=== PATIENT | male | born 1960 | race Caucasian/White ===

== ENCOUNTER 2017-06-01 11:44 | Emergency (ER) | payer OTHER ==
[2017-06-01 11:47] VITALS: BP 173/100; PULSE 89; RESP 16; TEMP 98.4; O2SAT 98
[2017-06-01] MEDS ORDERED: PRED20 PO (13:25)
--- NOTE | 2017-06-01 13:30 | PD ---
HPI Chief Complaint: Skin Problem Time Seen by Provider: 13:25 Travel History International Travel<30 days: No Contact w/Intl Traveler<30days: No Traveled to known affect area: No History of Present Illness HPI 56-year-old male presents for evaluation of a rash. Symptoms started 3-4 days ago. The rash is pruritic, primarily localized to the back and chest. He does report that he lifts weights, typically he wears tight shirts when he lifts weights, tends to sweat quite a bit in the shirts. He denies any new medications, creams, lotions, detergents. Denies any swelling of the tongue or the throat. No sick contacts. No recent travel. No other complaints. [facility] Social History Alcohol Use: No Tobacco Use: No Allergies-Medications (Allergen,Severity, Reaction): Coded Allergies: No Known Allergies (Unverified , 06/01/17) Reported Meds & Prescriptions Reported Meds & Active Scripts Active Prednisone 20 Mg Tab 20 Mg PO BID 5 Days Review of Systems Except as stated in HPI: all other systems reviewed are Neg Physical Exam Narrative GENERAL: Well-developed well-nourished male in no acute distress SKIN: Warm and dry. Maculopapular rash noted primarily on the torso and proximal extremities. No annular lesions, no petechiae, no purpura, no hives HEAD: Atraumatic. Normocephalic. EYES: Pupils equal and round. No scleral icterus. No injection or drainage. ENT: No nasal bleeding or discharge. Mucous membranes pink and moist. NECK: Trachea midline. No JVD. CARDIOVASCULAR: Regular rate and rhythm. No murmur appreciated. RESPIRATORY: No accessory muscle use. Clear to auscultation. Breath sounds equal bilaterally. MUSCULOSKELETAL: No obvious deformities. No clubbing. No cyanosis. No edema. Data Data Last Documented VS Vital Signs Date Time Temp Pulse Resp B/P (MAP) Pulse Ox O2 Delivery O2 Flow Rate FiO2 06/01/17 11:47 98.4 89 16 173/100 (124) 98 MDM Medical Decision Making Medical Screen Exam Complete: Yes Emergency Medical Condition: Yes Medical Record Reviewed: Yes Differential Diagnosis Irritant contact dermatitis, folliculitis, viral exanthem, pityriasis rosea Narrative Course 56-year-old male here with a papular pruritic rash in the torso for the past few days. The plan is to treat him with oral steroids and antihistamines and have him follow-up as an outpatient with primary care if symptoms persist. Diagnosis Primary Impression: Pruritic rash Additional Instructions: Medication as prescribed. Use [id number] Benadryl every 6 hours for itching. Do not drive or drink alcohol when taking this medication as an May cause sedation. Follow up with primary care, return for any emergent medical conditions. Med/Other Pt SpecificInfo: Prescription(s) given Scripts Prednisone (Prednisone) 20 Mg Tab 20 MG PO BID for 5 Days, #10 TAB 0 Refills Prov: Ivy Plasencia MD 06/01/17 Disposition: 01 DISCHARGE HOME Condition: Stable Titi Alonzo Jun 01, 2017 13:30
== END 2017-06-01 13:56 | disposition home or self-care (01) ==
LOC: NEPK 11:44
DX: R21 Rash and other nonspecific skin eruption (principal)
CPT/HCPCS: 99283